=== PATIENT | female | born 1980 | race Caucasian/White ===

== ENCOUNTER 2016-05-08 15:50 | Outpatient (CLI) | payer MEDICAID ==
--- NOTE | 2016-05-09 12:40 | Ultrasound Report ---
PELVIC ULTRASOUND: 05/08/2016 CLINICAL INDICATION: Pain. TECHNIQUE: Transabdominal pelvic ultrasound performed for global evaluation. Transvaginal pelvic ultrasound performed for detailed evaluation. Real-time scanning performed and static images obtained. FINDINGS: The uterus is retroverted, measuring 8.2 x 4.1 x 3.1 cm. The endometrial echo complex measures 4 mm. An IUD is noted in the endometrial canal. No focal myometrial lesion is seen. The right ovary is unremarkable, measuring 3.5 x 2.9 x 1.7 cm. The left ovary measures 3.2 x 2.8 x 2.3 cm, and contains a 2.3 x 2.1 x 1.7 cm hemorrhagic cyst. No free fluid is present. IMPRESSION: HEMORRHAGIC LEFT OVARIAN CYST. IUD IN THE ENDOMETRIAL CANAL. JOB #: [id number] EXT JOB #: [id number] [facility]
== END 2016-05-08 15:51 | disposition home or self-care (01) ==
LOC: DI 15:50
PROVIDERS: ATTEND Obstetrics & Gynecology
DX: N83.202 Unspecified ovarian cyst, left side (principal); Z97.5 Presence of (intrauterine) contraceptive device
CPT/HCPCS: 76830; 76856

== ENCOUNTER 2016-05-10 15:15 | Outpatient (CLI) | payer MEDICAID | END 2016-05-10 15:16 | disposition home or self-care (01) | DX: R23.3 Spontaneous ecchymoses (principal) ==

== ENCOUNTER 2016-05-11 14:37 | Outpatient (CLI) | payer MEDICAID | END 2016-05-11 14:38 | disposition home or self-care (01) | DX: R23.3 Spontaneous ecchymoses (principal) ==

== ENCOUNTER 2016-05-18 16:00 | Outpatient (CLI) | payer MEDICAID | END 2016-05-18 16:01 | disposition home or self-care (01) | DX: D75.89 Other specified diseases of blood and blood-forming organs (principal) ==

== ENCOUNTER 2016-06-26 15:28 | Outpatient (CLI) | payer MEDICAID | END 2016-06-26 15:29 | disposition home or self-care (01) | DX: R10.30 Lower abdominal pain, unspecified (principal) ==

== ENCOUNTER 2016-06-28 08:18 | Day surgery (SDC) | payer MEDICAID ==
[~2016-06-28 08:18] MED LIST: CELECOXIB 100 MG CAPSULE PO ONE
[2016-06-28] MEDS ORDERED: LACTATED RINGERS 1,000 ML IV ONE ×2 (08:29→13:49)
[2016-06-28] MEDS ORDERED: LIDOCAINE 1%-EPI 1:100000 30 ML MDV SUBQ ONE (12:06)
[2016-06-28] MEDS ORDERED: DEXAMETHASONE 4 MG/ML VIAL IVP ONE (12:30)
[2016-06-28] MEDS ORDERED: diphenhydrAMINE INJ 50 MG/ML VIAL IVP ONE (12:30)
[2016-06-28] MEDS ORDERED: PROPOFOL 200 MG/20 ML VIAL IVP ONE (12:30)
[2016-06-28] MEDS ORDERED: SUCCINYLCHOLINE 200 MG/10 ML VIAL IVP ONE (12:30)
[2016-06-28] MEDS ORDERED: KETOROLAC 30 MG/ML VIAL IVP ONE (12:30)
[2016-06-28] MEDS ORDERED: LIDOCAINE-MPF 2% 5 ML VIAL IM ONE (12:30)
[2016-06-28] MEDS ORDERED: MIDAZOLAM 2 MG/2 ML VIAL IVP ONE (12:30)
[2016-06-28] MEDS ORDERED: fentaNYL 100 MCG/2 ML VIAL IVP ONE (12:30)
[2016-06-28] MEDS ORDERED: ROCURONIUM 50 MG/5 ML VIAL IVP ONE (12:30)
[2016-06-28] MEDS ORDERED: ACETAMINOPHEN 1,000 MG/100 ML VIAL IV ONE (12:30)
[2016-06-28] MEDS: fentaNYL 100 MCG/2 ML VIAL ONE ×2 (13:05→13:15)
[2016-06-28] MEDS: HYDROmorphone 1 MG/ML SYRINGE ONE ×3 (13:22→13:44)
[2016-06-28] MEDS ORDERED: HYDROmorphone 1 MG/ML SYRINGE ONE (13:36)
[2016-06-28] MEDS ORDERED: HYDROcod/ACETAM 5/325 MG TABLET ONE (14:11)
== END 2016-06-28 08:19 | disposition home or self-care (01) ==
PROC: 0UN14ZZ Release Left Ovary, Percutaneous Endoscopic Approach (ICD-10-PCS; 2016-06-28)
PROC: 0UB14ZZ Excision of Left Ovary, Percutaneous Endoscopic Approach (ICD-10-PCS; principal; 2016-06-28 09:15)
DX: N83.12 Corpus luteum cyst of left ovary (principal); N73.6 Female pelvic peritoneal adhesions (postinfective); N83.8 Other noninflammatory disorders of ovary, fallopian tube and broad ligament; N85.4 Malposition of uterus; Z97.5 Presence of (intrauterine) contraceptive device; F17.210 Nicotine dependence, cigarettes, uncomplicated
CPT/HCPCS: 58661; 81025; A9270; J0131; J1170; J7120

== ENCOUNTER 2016-10-21 08:00 | Outpatient (CLI) | payer MEDICAID | END 2016-10-21 08:01 | disposition home or self-care (01) | LOC: LAB.R 08:00 | PROVIDERS: ATTEND Nurse Practitioner Family | DX: R10.84 Generalized abdominal pain (principal) | CPT/HCPCS: 83630; 87045; 87046; 87338; 87493 ==

== ENCOUNTER 2016-10-23 10:20 | Outpatient (CLI) | payer MEDICAID | END 2016-10-23 10:21 | disposition home or self-care (01) | LOC: LAB.R 10:20 | PROVIDERS: ATTEND Nurse Practitioner Family | DX: R10.84 Generalized abdominal pain (principal) | CPT/HCPCS: 82270 ==

== ENCOUNTER 2016-10-23 11:43 | Outpatient (CLI) | payer MEDICAID ==
[2016-10-23 18:40] LABS: ALBUMIN/GLOBULIN RATIO 1.5 (1.0-2.2); BILIRUBIN,TOTAL 0.5 mg/dL (0.2-1.0); CREATININE 0.8 mg/dL (0.4-1.0); POTASSIUM 3.8 mmol/L (3.5-5.0)
[2016-10-23 19:15] LABS: BASOPHILS % (AUTO) 0.2 %; EOSINOPHILS % (AUTO) 0.3 %; HCT - HEMATOCRIT 47.3 % (37.0-47.0); HGB - HEMOGLOBIN 15.7 g/dL (12.0-16.0); LYMPHOCYTES # (AUTO) 2.2 10^3/uL (1.5-3.5); LYMPHOCYTES % (AUTO) 20.2 %; MEAN CORPUSCULAR HGB CONC 33.1 g/dL (32.0-36.0); MEAN CORPUSCULAR VOLUME 105.9 fL (81.0-99.0); MEAN PLATELET VOLUME 7.7 fL (7.9-10.8); MONOCYTES # (AUTO) 0.4 10^3/uL (0.0-1.0); MONOCYTES % (AUTO) 3.6 %; NEUTROPHILS # (AUTO) 8.2 10^3/uL (1.5-6.6); NEUTROPHILS % (AUTO) 75.7 %; RED BLOOD COUNT 4.47 10^6/uL (4.20-5.40); RED CELL DISTRIBUTION WIDTH 12.8 % (12.0-15.0); UNCORRECTED WHITE BLOOD COUNT 10.8 x10^3/uL; WHITE BLOOD COUNT 10.8 x10^3/uL (4.8-10.8)
== END 2016-10-23 11:44 | disposition home or self-care (01) ==
LOC: LAB.S 11:43
PROVIDERS: ATTEND Nurse Practitioner Family
DX: R10.84 Generalized abdominal pain (principal); D75.89 Other specified diseases of blood and blood-forming organs
CPT/HCPCS: 36415; 80053; 81599; 82150; 82607; 83690; 85025

== ENCOUNTER 2016-12-09 07:11 | Emergency (ER) | payer MEDICAID ==
[2016-12-09] MEDS ORDERED: cefTRIAXone 1 GM in SODIUM CHLORIDE 0.9% MINIBAG 100 ML IV STA (08:38)
[2016-12-09] MEDS ORDERED: DEXAMETHASONE 10 MG/ML VIAL IVP STA (08:38)
[2016-12-09] MEDS ORDERED: KETOROLAC 60 MG/2 ML VIAL IVP STA (08:38)
[2016-12-09] MEDS ORDERED: SODIUM CHLORIDE 0.9% 1,000 ML IV ONE ×3 (08:38→13:03)
[2016-12-09] MEDS ORDERED: diphenhydrAMINE INJ 50 MG/ML VIAL IVP STA (08:39)
[2016-12-09] MEDS ORDERED: PROCHLORPERAZINE 10 MG/2 ML VIAL IVP STA (08:39)
--- NOTE | 2016-12-09 08:42 | ED Physician Documentation ---
PD HPI HEADACHE - Stated complaint Stated Complaint: HEADACHE - Chief complaint Chief Complaint: Neuro - History obtained from History obtained from: Patient, Family - History of Present Illness Timing - onset: How many days ago (4) Timing - onset during: Rest Timing - duration: Days (4) Timing - details: Abrupt onset, Still present Location: Left Quality: Throbbing Associated symptoms: Stiff neck, Nausea, Vomiting, Numbness Improved by: Rest, Dark room, Quiet Worsened by: Light, Noise, Moving Contributing factors: No: Anticoagulated Similar symptoms before: Diagnosis (migraine) Recently seen: Not recently seen - Additional information Additional information: 36-year-old female with prior history of migraine has developed headache about 4 days ago. She has severe headache and nausea and vomiting. She has not been able to hold anything at all down yesterday and she has numbness on the right side. These are symptoms she has had previously. Review of Systems Constitutional: denies: Fever, Chills Eyes: reports: Photophobia. denies: Decreased vision Ears: denies: Ear pain Nose: denies: Rhinorrhea / runny nose, Congestion Throat: denies: Sore throat Cardiac: denies: Chest pain / pressure, Palpitations Respiratory: denies: Dyspnea, Cough GI: reports: Nausea, Vomiting. denies: Abdominal Pain : denies: Dysuria, Frequency Skin: denies: Rash Musculoskeletal: reports: Neck pain. 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 : None HEENT: None Psych: None Musculoskeletal: None Derm: None - Past Surgical History Past Surgical History: Yes /HOLLOW WARE MAKER: Dilation and currettage, Breast implants, Other - Present Medications Home Medications: Ambulatory Orders Medication Instructions Recorded Confirmed Sumatriptan [Imitrex] 100 mg PO DAILY PRN 02/15/15 06/28/16 Cyanocobalamin (Vitamin B-12) 1,000 mcg PO DAILY 06/26/16 06/28/16 [Vitamin B-12] Naproxen Sodium 220 mg PO DAILY 06/26/16 06/28/16 Azithromycin [Zithromax] 250 mg PO DAILY #6 tablet 12/09/16 - Allergies Allergies/Adverse Reactions: Allergies Allergy/AdvReac Type Severity Reaction Status Date / Time aspirin AdvReac Nausea Verified 06/26/16 15:24 - Social History Does the pt smoke?: Yes Smoking Status: Current every day smoker Does the pt drink ETOH?: Yes Does the pt have substance abuse?: No - Immunizations Immunizations are current?: Yes - POLST Patient has POLST: No PD ED PE NORMAL - Vitals Vital signs reviewed: Yes (Tachycardic) - General General: Well developed/nourished, Other (36-year-old female whimpering with her eyes closed in her hands clutched over her head has the bed sheet pulled up over her head as well. She appears to be in pain.) - HEENT HEENT: Atraumatic, Other (The left TM is markedly inflamed with indistinct landmarks the right is with minimal inflammation.) - Neck Neck: Supple, no meningeal sign, No bony TTP - Cardiac Cardiac: No murmur, Other (Tachycardic) - Respiratory Respiratory: No respiratory distress, Clear bilaterally - Abdomen Abdomen: Soft, Non tender - Back Back: No CVA TTP, No spinal TTP - Derm Derm: Normal color, Warm and dry, No rash - Extremities Extremities: No deformity, No edema - Neuro Neuro: No motor deficit, No sensory deficit - Psych Psych: Other (The mood is withdrawn and the affect is flat) Results - Vitals Vitals: Vital Signs - 24 hr 12/09/16 12/09/16 12/09/16 07:18 09:33 11:22 Temperature 36.5 C 36.5 C 38.1 C H Heart Rate 103 H 94 100 Respiratory 14 14 14 Rate Blood Pressure 122/76 124/78 122/76 O2 Saturation 97 97 95 Oxygen O2 Source Room air - Labs Labs: Laboratory Tests 12/09/16 12/09/16 09:00 09:00 WBC 12.3 H RBC 4.48 Hgb 15.3 Hct 46.0 MCV 102.7 H MCH 34.3 H MCHC 33.4 RDW 12.3 Plt Count 255 MPV 7.2 L Neut # 10.4 H Lymph # 1.4 L [place] # 0.4 Eos # 0.0 Baso # 0.0 Absolute Nucleated RBC 0.00 Nucleated RBC % 0.0 Sodium 137 Potassium 3.5 Chloride 102 Carbon Dioxide 23 Anion Gap 12.0 BUN 9 Creatinine 0.7 Estimated GFR (MDRD) 95 Glucose 116 H Calcium 8.9 Total Bilirubin 0.6 AST 16 ALT 18 Alkaline Phosphatase 66 Total Protein 7.3 Albumin 4.3 Globulin 3.0 Albumin/Globulin Ratio 1.4 Lipase 28 Procedures - IVC sono (time) 0821 Bedside IVC sono: IVC measures (cm) (0.6), IVC collapsed c insp (cm) (complet), Profound dehydration PD MEDICAL DECISION MAKING - ED course Complexity details: reviewed old records, reviewed results, re-evaluated patient , considered differential, d/w patient, d/w family ED course: 36-year-old female with a history of migraines and complicated migraines has a bad migraine for the past 4 days and has not eaten or drank anything. She is profoundly dehydrated. Here in the emergency department she was treated with a combination of saline Compazine Benadryl Toradol and dexamethasone. She has improvement in her headache she continues to be somewhat weak and is administered a second liter of saline. She has been given intravenous Rocephin as well for left otitis. She has marked inflammation on examination and she has had pain on and off for some time. She is currently having pain. Departure - Departure Disposition: 01 Home, Self Care Clinical Impression: Dehydration Migraine Qualifiers: Migraine type: hemiplegic Status migrainosus presence: without status migrainosus Intractability: not intractable Qualified Code(s): G43.409 - Hemiplegic migraine, not intractable, without status migrainosus Otitis media Qualifiers: Otitis media type: suppurative Chronicity: acute Laterality: left Recurrence: not specified as recurrent Spontaneous tympanic membrane rupture: without spontaneous rupture Qualified Code(s): H66.002 - Acute suppurative otitis media without spontaneous rupture of ear drum, left ear Condition: Stable Instructions: Dehydration, ED Headache Migraine, ED Otitis Media Acute Adult Follow-Up: India Carr ARNP [Primary Care Provider] - Prescriptions: Azithromycin [Zithromax] 250 mg PO DAILY #6 tablet
[2016-12-09] MEDS ORDERED: cefTRIAXone 1 GM VIAL ONE (08:51)
[2016-12-09] MEDS ORDERED: DEXAMETHASONE 10 MG/ML VIAL ONE (08:51)
[2016-12-09] MEDS ORDERED: KETOROLAC 30 MG/ML VIAL ONE (08:51)
[2016-12-09] MEDS ORDERED: SODIUM CHLORIDE FLUSH 0.9% 10 ML SYRINGE IVP ONE ×2 (08:52→09:55)
[2016-12-09 09:22] LABS: BASOPHILS % (AUTO) 0.2 %; HGB - HEMOGLOBIN 15.3 g/dL (12.0-16.0); LYMPHOCYTES # (AUTO) 1.4 10^3/uL (1.5-3.5); LYMPHOCYTES % (AUTO) 11.6 %; MEAN CORPUSCULAR HEMOGLOBIN 34.3 pg (27.0-31.0); MEAN CORPUSCULAR HGB CONC 33.4 g/dL (32.0-36.0); MEAN CORPUSCULAR VOLUME 102.7 fL (81.0-99.0); MEAN PLATELET VOLUME 7.2 fL (7.9-10.8); MONOCYTES # (AUTO) 0.4 10^3/uL (0.0-1.0); MONOCYTES % (AUTO) 3.4 %; NEUTROPHILS # (AUTO) 10.4 10^3/uL (1.5-6.6); NEUTROPHILS % (AUTO) 84.8 %; RED BLOOD COUNT 4.48 10^6/uL (4.20-5.40); RED CELL DISTRIBUTION WIDTH 12.3 % (12.0-15.0); UNCORRECTED WHITE BLOOD COUNT 12.3 x10^3/uL; WHITE BLOOD COUNT 12.3 x10^3/uL (4.8-10.8)
[2016-12-09 09:39] LABS: ALBUMIN/GLOBULIN RATIO 1.4 (1.0-2.2); BILIRUBIN,TOTAL 0.6 mg/dL (0.2-1.0); CALCIUM 8.9 mg/dL (8.5-10.3); CREATININE 0.7 mg/dL (0.4-1.0); POTASSIUM 3.5 mmol/L (3.5-5.0); TOTAL PROTEIN 7.3 g/dL (6.7-8.2)
[2016-12-09] MEDS ORDERED: PROCHLORPERAZINE 10 MG/2 ML VIAL ONE (09:56)
[2016-12-09] MEDS ORDERED: diphenhydrAMINE INJ 50 MG/ML VIAL ONE (09:56)
[2016-12-09 15:16] LABS: BILIRUBIN,URINE NEGATIVE (NEGATIVE)
[2016-12-09 15:17] LABS: UA CHARGE (STRIP ONLY) YES; UR CULTURE IF IND NOT INDICATED
[2016-12-09 15:18] LABS: HCG UR QUAL NEGATIVE
[2016-12-09 15:40] VITALS: BP 120/70
== END 2016-12-09 15:35 | disposition home or self-care (01) ==
LOC: ED 07:11
DX: E86.0 Dehydration (principal); G43.409 Hemiplegic migraine, not intractable, without status migrainosus; H66.002 Acute suppurative otitis media without spontaneous rupture of ear drum, left ear; F17.200 Nicotine dependence, unspecified, uncomplicated
CPT/HCPCS: 36415; 80053; 81001; 81003; 81025; 83690; 85025; 87086; 96361; 96365; 96375; 99284

== ENCOUNTER 2017-07-20 13:08 | Outpatient (CLI) | payer MEDICAID ==
[2017-07-20 18:38] LABS: BASOPHILS # (AUTO) 0.1 10^3/uL (0.0-0.1); BASOPHILS % (AUTO) 0.4 %; EOSINOPHILS % (AUTO) 0.2 %; LYMPHOCYTES # (AUTO) 2.7 10^3/uL (1.5-3.5); LYMPHOCYTES % (AUTO) 23.2 %; MEAN CORPUSCULAR HEMOGLOBIN 33.5 pg (27.0-31.0); MEAN CORPUSCULAR HGB CONC 32.2 g/dL (32.0-36.0); MEAN CORPUSCULAR VOLUME 104.1 fL (81.0-99.0); MEAN PLATELET VOLUME 7.6 fL (7.9-10.8); MONOCYTES # (AUTO) 0.5 10^3/uL (0.0-1.0); MONOCYTES % (AUTO) 3.9 %; NEUTROPHILS # (AUTO) 8.4 10^3/uL (1.5-6.6); NEUTROPHILS % (AUTO) 72.3 %; PLT - PLATELET COUNT 289 10^3/uL (130-450); RED BLOOD COUNT 5.06 10^6/uL (4.20-5.40); RED CELL DISTRIBUTION WIDTH 14.1 % (12.0-15.0); WHITE BLOOD COUNT 11.7 x10^3/uL (4.8-10.8)
[2017-07-20 18:55] LABS: THYROID STIMULATING HORMONE 0.33 uIU/mL (0.34-5.60)
[2017-07-20 18:58] LABS: ALBUMIN 4.5 g/dL (3.2-5.5); ALBUMIN/GLOBULIN RATIO 1.6 (1.0-2.2); BILIRUBIN,TOTAL 0.8 mg/dL (0.2-1.0); CALCIUM 9.3 mg/dL (8.5-10.3); CREATININE 0.7 mg/dL (0.4-1.0); TOTAL PROTEIN 7.3 g/dL (6.7-8.2)
[2017-07-20 19:07] LABS: FOLATE 10.95 ng/mL (5.90 - >24.8)
== END 2017-07-20 13:09 | disposition home or self-care (01) ==
LOC: LAB.F 13:08
PROVIDERS: ATTEND Nurse Practitioner Family
DX: R11.0 Nausea (principal); D75.89 Other specified diseases of blood and blood-forming organs; R53.83 Other fatigue
CPT/HCPCS: 36415; 80053; 82607; 82746; 84443; 85025

== ENCOUNTER 2017-07-24 13:40 | Outpatient (CLI) | payer MEDICAID | END 2017-07-24 13:41 | disposition home or self-care (01) | LOC: LAB.F 13:40 | PROVIDERS: ATTEND Nurse Practitioner Family | DX: E05.90 Thyrotoxicosis, unspecified without thyrotoxic crisis or storm (principal) | CPT/HCPCS: 36415; 84439; 84481 ==

== ENCOUNTER 2017-07-30 20:53 | Outpatient (CLI) | payer OTHER, MEDICAID | END 2017-07-30 20:54 | disposition critical access hospital (66) | LOC: EMS 20:53 | PROVIDERS: ATTEND Surgery | DX: R45.851 Suicidal ideations (principal) | CPT/HCPCS: A0425; A0429 ==

== ENCOUNTER 2017-07-30 21:21 | Emergency (ER) | payer OTHER, MEDICAID ==
[2017-07-30 21:31] VITALS: BP 132/90
--- NOTE | 2017-07-30 22:10 | ED Physician Documentation ---
PD HPI MHE - Stated complaint Stated Complaint: MHE - Chief complaint Chief Complaint: MHE - History obtained from History obtained from: Patient - History of Present Illness Primary symptom: Suicidal ideation Timing - onset: Today Contributing factors: Sig other, Substance abuse - ETOH Similar symptoms before: No diagnosis Recently seen: Not recently seen - Additional information Additional information: Patient is a 37 year old female who presented to the emergency department for suicidal ideation. Patient states that she did have a few drinks today and she was texting an x-boyfriend. While texting she sent an emoji of a crying face and a water gun. the friend called police. The police gave her the option of coming in or bringing her in. Upon initial evaluation in the emergency department patient stated that she was sad but she did not actually want to hurt herself or anyone else. Review of Systems Ten Systems: 10 systems reviewed and negative Psychiatric: reports: Depressed. 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: Dilation and currettage, Breast implants, Other - Present Medications Home Medications: Ambulatory Orders Medication Instructions Recorded Confirmed SUMAtriptan [Imitrex] 100 mg PO DAILY PRN 02/15/15 07/30/17 Naproxen Sodium 220 mg PO DAILY 06/26/16 07/30/17 Amitriptyline HCl 1 tab PO DAILY 07/30/17 07/30/17 - Allergies Allergies/Adverse Reactions: Allergies Allergy/AdvReac Type Severity Reaction Status Date / Time aspirin AdvReac Nausea Verified 07/30/17 21:32 - Social History Does the pt smoke?: Yes Smoking Status: Current every day smoker Does the pt drink ETOH?: Yes Does the pt have substance abuse?: No - Immunizations Immunizations are current?: Yes - POLST Patient has POLST: No PD ED PE NORMAL - Vitals Vital signs reviewed: Yes - General General: Alert and oriented X 3, No acute distress - HEENT HEENT: Atraumatic - Cardiac Cardiac: RRR - Respiratory Respiratory: No respiratory distress - Derm Derm: Normal color - Extremities Extremities: No deformity - Neuro Neuro: Alert and oriented X 3, No motor deficit, Normal speech Eye Opening: Spontaneous PD ED PE EXPANDED - General General: Alert - Psych Psych: Depressed, Tearful. No: Intoxicated / AOB, Suicidal, Homicidal Results - Vitals Vitals: Vital Signs - 24 hr 07/30/17 21:28 Temperature 36.6 C Heart Rate 90 Respiratory 18 Rate Blood Pressure 132/90 H O2 Saturation 99 Oxygen O2 Source Room air PD MEDICAL DECISION MAKING - ED course Complexity details: reviewed old records, reviewed results, re-evaluated patient , considered differential, d/w patient ED course: Patient was seen and examined at bedside. Patient was awake, alert and oriented. Patient stated that she did not actually want to hurt herself. she stated that she had to work in the morning and just wanted to get home. There was no grounds to hold the patient. She was going home with her grown son who would be with her. Patient required no further inpatient work up and was stable for discharge with outpatient follow up. Departure - Departure Disposition: 01 Home, Self Care Clinical Impression: Depression Condition: Good Instructions: ED Stress React Follow-Up: primary,care provider [Other] Comments: You should return to the emergency department at any time for thoughts of hurting yourself or thoughts of hurting anyone else. You can also call the crisis line at any time at Discharge Date/Time: 07/30/17 22:13
== END 2017-07-30 22:13 | disposition home or self-care (01) ==
LOC: EDUNIT# → ED 21:21
DX: F32.9 Major depressive disorder, single episode, unspecified (principal); F17.200 Nicotine dependence, unspecified, uncomplicated
CPT/HCPCS: 99282; 99283

== ENCOUNTER 2017-08-27 11:48 | Outpatient (CLI) | payer OTHER, MEDICAID ==
[2017-08-27 18:23] LABS: THYROID STIMULATING HORMONE 0.53 uIU/mL (0.34-5.60)
[2017-08-27 18:25] LABS: FREE T4 (FREE THYROXINE) 1.09 ng/dL (0.58-1.64)
== END 2017-08-27 11:49 | disposition home or self-care (01) ==
LOC: LAB.S 11:48
PROVIDERS: ATTEND Nurse Practitioner Family
DX: E05.90 Thyrotoxicosis, unspecified without thyrotoxic crisis or storm (principal); R00.2 Palpitations
CPT/HCPCS: 36415; 84439; 84443; 84481

== ENCOUNTER → 2017-08-27 | Outpatient (CLI) | payer OTHER, MEDICAID | LOC: RT.S 12:15 | PROVIDERS: ATTEND Nurse Practitioner Family | DX: R00.2 Palpitations (principal) | CPT/HCPCS: 93005 ==

== ENCOUNTER 2017-10-14 14:59 | Outpatient (CLI) | payer OTHER, MEDICAID ==
--- NOTE | 2017-10-14 16:34 | Ultrasound Report ---
Procedure Date: 10/14/2017 Accession Number: [id number] / [id number] Procedure: US - Head or Neck Soft Tissue CPT Code: FULL RESULT: EXAM: THYROID ULTRASOUND EXAM DATE: 10/14/2017 03:46 PM. CLINICAL HISTORY: HYPERTHYROID. COMPARISON: CT soft tissue neck 10/10/2011. TECHNIQUE: Real time sonographic imaging of the thyroid was performed by the restaurant mgr. Multiple solar sales representative and assessor static images were saved for review. FINDINGS: THYROID GLAND: Right Lobe: 5.8 x 2.0 x 2.4 cm, volume 15 cc. Heterogeneous with diffuse microcystic pattern. Right Lobe Nodules: None. Left Lobe: 4.3 x 1.6 x 1.6 cm, volume 5.7 cc. Heterogeneous with diffuse microcystic pattern. Left Lobe Nodules: None. Isthmus: 0.5 cm AP. Isthmic Nodules: None. LYMPH NODES: No adenopathy demonstrated in the central or lateral compartment. OTHER: None. IMPRESSION: Right thyroid lobe mildly large. Left thyroid lobe normal in size. Thyroid gland is diffusely heterogeneous with a microcystic pattern. The findings are suggestive of chronic thyroiditis. [facility]
== END 2017-10-14 15:00 | disposition home or self-care (01) ==
LOC: DI 14:59
PROVIDERS: ATTEND Nurse Practitioner Family
DX: E05.90 Thyrotoxicosis, unspecified without thyrotoxic crisis or storm (principal)
CPT/HCPCS: 76536

== ENCOUNTER 2018-03-20 14:40 | Outpatient (CLI) | payer OTHER, MEDICAID ==
--- NOTE | 2018-03-21 11:43 | MRI Report ---
Reason: KNEE PAIN, RIGHT, CHRONIC Procedure Date: 03/20/2018 Accession Number: [id number] / [id number] Procedure: MRI - Knee RT W/O CPT Code: FULL RESULT: EXAM: RIGHT KNEE MRI WITHOUT CONTRAST EXAM DATE: 03/20/2018 03:30 PM. CLINICAL HISTORY: Chronic right knee pain after injury while walking. COMPARISON: None. TECHNIQUE: Multiplanar, multisequence T1-weighted and fluid-sensitive sequences of the knee without contrast. Other: None. FINDINGS: Bones: No fractures or subluxations. No marrow edema. No bone lesions. Articular Cartilage: Unremarkable. Medial Meniscus: The medial meniscus is intact. Lateral Meniscus: The lateral meniscus is intact. Cruciate Ligaments: The anterior and posterior cruciate ligaments are intact. Collateral Ligaments: The medial collateral and lateral collateral ligamentous structures are intact. Tendons: The quadriceps, patellar, semimembranosus, and popliteus tendons are unremarkable. Musculature: No edema or fatty atrophy. Other: No effusion. No popliteal cyst. No loose bodies. The medial and lateral retinacula are intact. Mild soft tissue edema is posterior to the knee.. IMPRESSION: Posterior knee soft tissue edema is nonspecific but may be related to contusion. [facility] MUSCULOSKELETAL RADIOLOGY SECTION
== END 2018-03-20 14:41 | disposition home or self-care (01) ==
LOC: DI 14:40
PROVIDERS: ATTEND Nurse Practitioner
DX: M25.561 Pain in right knee (principal); M25.461 Effusion, right knee

== ENCOUNTER 2020-03-07 17:02 | Outpatient (CLI) | payer OTHER, MEDICAID ==
--- NOTE | 2020-03-07 17:45 | CT Report ---
PROCEDURE: HEAD WO INDICATIONS: LOSS OF BALANCE, VISUAL CHANGES TECHNIQUE: Noncontrast 4.5 mm thick angled axial sections acquired from the foramen magnum to the vertex. For r adiation dose reduction, the following was used: automated exposure control, adjustment of mA and/or kV according to patient size. COMPARISON: None. FINDINGS: Image quality: Excellent. CSF spaces: Basal cisterns are patent. No extra-axial fluid collections. Ventricles are normal in size and shape. Brain: No midline shift. No intracranial masses or hemorrhage. Contreras-white matter interface is norm al. Skull and face: Calvarium and visualized facial bones are intact, without suspicious lesions. Sinuses: Visualized sinuses and mastoids are clear. IMPRESSION: No CT evidence of acute intracranial pathology. Reviewed by: Will Campos MD on 03/07/2020 5:44 PM PST Approved by: Will Campos MD on 03/07/2020 5:44 PM PST Station ID: [id number]
== END 2020-03-07 17:03 | disposition home or self-care (01) ==
LOC: DI 17:02
PROVIDERS: ATTEND Physician Assistant Medical
DX: R26.89 Other abnormalities of gait and mobility (principal); H53.8 Other visual disturbances
CPT/HCPCS: 70450